=== PATIENT | male | born 1975 | race African-American/Black ===

== ENCOUNTER 2016-10-14 13:08 | Emergency (ER) | payer SELFPAY ==
[~2016-10-14] VITALS: Ht 167.6 cm; Wt 82.0 kg
[2016-10-14 13:22] VITALS: BP 129/83
[2016-10-14] MEDS ORDERED: MORPHINE SULFATE 4 MG/ML CPJ (NOT FOR IM USE) IV STA (13:41)
[2016-10-14] MEDS ORDERED: ONDANSETRON HCL 4MG/2ML VIAL IV STA (13:41)
[2016-10-14 14:27] LABS: BASOPHILS % 0.5 % (0.0-2.0); EOSINOPHILS % 2.2 % (0.0-5.0); HEMOGLOBIN. 13.1 g/dL (14.0-18.0); LYMPHOCYTES % 23.2 % (20.0-50.0); MEAN CORPUSCULAR HEMOGLOBIN 30.1 pg (28.0-32.0); MEAN CORPUSCULAR VOLUME 87.2 fL (80.0-94.0); MEAN PLATELET VOLUME 7.8 fl (7.4-10.4); MONOCYTES % 10.3 % (2.0-8.0); NEUTROPHILS % 63.8 % (40.0-76.0); PLATELET 275 x1000/uL (130-400); RED BLOOD CELL COUNT 4.36 mill/uL (4.7-6.1)
[2016-10-14 14:33] LABS: PROTHROMBIN TIME 10.9 sec
[2016-10-14 14:38] LABS: CARBON DIOXIDE 26 mEq/L (21-32); CHLORIDE 105 mEq/L (98-107)
[2016-10-14 14:57] LABS: CLARITY URINE CLEAR (CLEAR); COLOR URINE YELLOW (YELLOW); GLUCOSE URINE NEGATIVE (NEGATIVE); KETONES URINE NEGATIVE (NEGATIVE); LEUKOCYTE ESTERASE URINE NEGATIVE (NEGATIVE); NITRITE URINE NEGATIVE (NEGATIVE); OCCULT BLOOD URINE NEGATIVE (NEGATIVE); PROTEIN URINE NEGATIVE (NEGATIVE); SPECIFIC GRAVITY URINE 1.012 (1.005-1.030); UROBILINOGEN URINE 0.2 E.U./dL (0.2-1.0)
[2016-10-14] MEDS ORDERED: DICYCLOMINE 10 MG/5 ML ORAL SYR PO STA (15:39)
[2016-10-14] MEDS ORDERED: MAGNESIUM/ALUMINUM HYDROXIDE/SIMETHICONE 30ML UDC PO STA (15:39)
[2016-10-14] MEDS ORDERED: VISCOUS LIDOCAINE 2% 15 ML UDC PO STA (15:39)
== END 2016-10-14 16:09 | disposition left against medical advice (07) ==
LOC: ER 14:10
DX: R10.13 Epigastric pain (principal); F17.210 Nicotine dependence, cigarettes, uncomplicated; F99 Mental disorder, not otherwise specified
CPT/HCPCS: 36415; 76705; 80053; 81003; 83690; 85025; 85610; 99285